=== PATIENT | female | born 1970 | race Caucasian/White ===

== ENCOUNTER → 2017-08-11 | Outpatient (CLI) | payer BC ==
--- NOTE | 2017-08-11 15:33 | US ---
EXAM DESCRIPTION: Breast,Bilateral: Ultrasound CLINICAL HISTORY: 47 yearsFemaleBREAST LUMP. Palpable at the 600 clock position of the posterior left breast. COMPARISON: Digital diagnostic 3-D tomosynthesis bilateral breast on the same visit. TECHNIQUE: Transcutaneous scanning of the bilateral breast utilizing two-dimensional and Doppler modes. Scanning performed by the sales technician home theater and Dr. Stewart. FINDINGS: Scanning of the 600 clock position of the left breast 5 cm from the nipple, where mass is palpable. Heterogeneous predominantly hypoechoic mass with angular, microlobulated, and spiculated margins, with predominantly posterior acoustic shadowing. Nonparallel orientation. Anterior aspect shows increased Doppler vascularity. Dimensions are 2.4 x 2.1 cm. No skin changes or distinct cyst or parenchymal edema. Scanning of the 1000 - 1100 clock position of the right breast 5 cm from the nipple. Heterogeneous fibroglandular and fatty echotexture with no distinct solid mass. No cyst, recommend edema, or large calcification. No skin changes. IMPRESSION: BI-RADS Category 5: Highly suspicious findings. Highly suggestive of malignancy. Please refer to bilateral 3-D tomosynthesis diagnostic mammographic examination and report on this visit. The FINDINGS and the FOLLOW-UP plan were reviewed in person with the patient after the examination. Written communication explaining the IMPRESSION and FOLLOW-UP will be mailed to the patient and referring care provider. CRITICAL COMMUNICATION: The critical value was discussed directly by phone with Dr. Adrien Ferrera at approximately 1425 hours, on August 11, 2017. Electronically signed by: Kenji Stewart MD 08/11/2017 3:31 PM CDT
--- NOTE | 2017-08-11 15:36 | MAM ---
EXAM DESCRIPTION: 3D Diagnostic, Bilateral: Digital Mammography CLINICAL HISTORY: 47 yearsFemaleUNSPECIFIED LUMP IN LEFT BREAST QUADRANT . Palpable lump posterior inferior left breast.. COMPARISON: None available. No prior reports available. TECHNIQUE: Bilateral CC LM MLO projection full-field images, 3-D tomosynthesis digital mammographic technique. Also bilateral synthesized CC MLO LM full-field images. CAD not utilized. FINDINGS: The breast parenchymal density pattern is: Heterogeneously dense breast tissue, which may obscure small masses. No skin thickening or nipple retraction secondary mammographic tissue in the left axilla. Small axillary lymph node. Skin marker indicating location of palpable mass at the 600 clock position of the posterior left breast in the posterior third. At this location, there is a mass density with irregular spiculated margins measuring approximately 2.1 x 1.9 x 1.8 cm. Approximately 6 cm from the nipple. Possibly small calcifications in the anterior mass. Focal asymmetry in the upper outer quadrant of the middle third of the right breast approximately 6 cm from the nipple at the 1030 - 1100 clock position. Approximately 7 cm from the nipple. No associated calcifications or mass density.. Ultrasound: Scanning of the 600 clock position of the left breast 5 cm from the nipple, where mass is palpable. Heterogeneous predominantly hypoechoic mass with angular, microlobulated, and spiculated margins, with predominantly posterior acoustic shadowing. Nonparallel orientation. Anterior aspect shows increased Doppler vascularity. Dimensions are 2.4 x 2.1 cm. No skin changes or distinct cyst or parenchymal edema. Scanning in the 1000 - 1100 clock position of the right breast 5 cm from the nipple. Heterogeneous fibroglandular and fatty echotexture with no distinct solid mass. No cyst, recommend edema, or large calcification. No skin changes. IMPRESSION: BIRADS CATEGORY: 5 HIGHLY SUSPICIOUS FINDINGS. HIGHLY SUGGESTIVE OF MALIGNANCY. Recommendation: Surgical consultation. The FINDINGS and the FOLLOW-UP plan were reviewed in person with the patient after the examination. Written communication explaining the IMPRESSION and FOLLOW-UP will be mailed to the patient and referring care provider. CRITICAL COMMUNICATION: The critical value was discussed directly by phone with Dr. Adrien Ferrera at approximately 1425 hours, on August 11, 2017. Electronically signed by: Kenji Stewart MD 08/11/2017 3:33 PM CDT
== END ==
LOC: MAMMO 11:31
PROVIDERS: ATTEND Family Medicine
DX: N63.20 Unspecified lump in the left breast, unspecified quadrant (principal)
CPT/HCPCS: 76641; 77066; G0279

== ENCOUNTER → 2017-08-16 | Outpatient (CLI) | payer BC ==
--- NOTE | 2017-08-16 09:22 | OP ---
DATE OF PROCEDURE: 08/16/17 PREOPERATIVE DIAGNOSIS: 1. Left breast mass, lower left breast. POSTOPERATIVE DIAGNOSIS: 1. Left breast mass, lower left breast. PROCEDURE: 1. Sonographically guided needle core biopsy, left breast mass. SURGEON: Lucio Zamora MD. CLINICAL CYTOGENETICIST: None. ANESTHESIA: Local infiltration of 1% lidocaine. INDICATION: The patient is a 47-year-old female with a family history of breast cancer who had her first mammogram which revealed a solid mass in the left breast just lateral to the 6 o'clock position. It was solid and irregularly shaped. She was brought to the Ultrasound Suite today for sonographically guided biopsy. FINDINGS: Five good cores were taken with ultrasound revealing the biopsy needle within the mass. PROCEDURE: The patient was placed in the supine position. The left arm was extended. The ultrasound was used to identify the mass. The the skin lateral to and superior to the mass was prepped with Betadine and draped with sterile towels. Local infiltration of anesthesia was obtained with lidocaine. The tissue between the skin and the mass was infiltrated with local anesthesia. A stab wound was made with a #15 blade and then the biopsy needle was introduced and five passes were made, all identified in the mass with ultrasound including the 90 degree turn for one. The specimens were placed in formalin. Hemostasis was obtained with pressure and then a single suture of 4-0 Prolene. Sterile pressure dressing was applied. The patient tolerated the procedure well. There was essentially no blood loss. #[id number] [facility]
--- NOTE | 2017-08-16 14:40 | US ---
EXAM DESCRIPTION: Biopsy/Needle Guidance CLINICAL HISTORY: 47 years Female BREAST NODULE COMPARISON: Diagnostic ultrasound of the lateral breast on August 11, 2017. TECHNIQUE: The procedure was performed by Dr. Zamora. Repeat ultrasound localized mass at the 500 clock position of the left breast 5 cm from the nipple.. Sterile preparation. Sterile ultrasound guidance during needle passes. FINDINGS: Again demonstrated is a heterogeneous predominantly hypoechoic mass with angular, microlobulated, and spiculated margins, with predominantly posterior acoustic shadowing. Nonparallel orientation. Follow-up images during the procedure show the echogenic needle within the mass. IMPRESSION: Successful, ultrasound-guided, fine-needle core biopsy of left breast mass. Adequate core samples were obtained. Pathology examination at remote facility, results pending. Recommendations: If the pathology results are negative, six-month breast imaging follow-up is recommended. Electronically signed by: Kenji Stewart MD 08/16/2017 2:39 PM CDT
== END ==
LOC: US 08:08
PROVIDERS: ATTEND Surgery
DX: N63.23 Unspecified lump in the left breast, lower outer quadrant (principal)

== ENCOUNTER → 2017-08-17 | Outpatient (CLI) | payer BC ==
--- NOTE | 2017-08-17 16:35 | RAD ---
EXAM DESCRIPTION: Chest,2 Views CLINICAL HISTORY: CA RIGHT BREAST COMPARISON: None. TECHNIQUE: PA and lateral images. FINDINGS: The lungs are normally expanded bilaterally, with no infiltrates. No pleural effusion, no pneumothorax. Heart size within normal range; pulmonary vascularity unremarkable. Mediastinum not widened. Aorta unremarkable. No acute bony thorax abnormalities. IMPRESSION: No radiographic evidence of acute cardiopulmonary disease. Electronically signed by: Kenji Stewart MD 08/17/2017 4:34 PM CDT
== END | disposition home or self-care (01) ==
LOC: LAB.O 15:12
PROVIDERS: ATTEND Surgery
DX: C50.812 Malignant neoplasm of overlapping sites of left female breast (principal)

== ENCOUNTER → 2017-08-25 | Outpatient (CLI) | payer BC ==
--- NOTE | 2017-08-25 13:01 | CT ---
EXAM DESCRIPTION: CT chest without contrast Chest w/Contrast CLINICAL HISTORY: 47 years, Female, LEFT BREAST CANCER COMPARISON: None TECHNIQUE: Thin-section axial CT images are obtained before and during rapid bolus administration of usual adult dose of nonionic iodinated IV contrast media. Reconstructed MPR images are created and reviewed as well. FINDINGS: CT chest without contrast Irregularly marginated mass in the inferior left breast measures 2.6 cm consistent with primary breast carcinoma. No axillary eric enlargement. There is high density in the left axilla which could be postoperative change or ectopic breast tissue. No mediastinal mass or adenopathy. Normal size of the heart. Lung window images are negative for worrisome nodules or masses. No consolidating pulmonary infiltrate, pneumothorax or pleural effusion. CT chest with contrast After IV contrast administration, repeat helical scanning through the chest was performed. Mild biapical pleural-parenchymal scarring is incidentally noted. A tiny granuloma is seen in the anterior segment left upper lobe measuring 2 mm (image 34, series 9). Another similar sized tiny granulomas is seen in the lung adjacent to the lateral AP window (coronal image 115, series 607 and axial image 20, series 6) which measures 2.5 mm. In the mediastinum, there is normal enhancement of vessels. Esophagus is prominent in caliber. No esophageal mass. Small sliding-type hiatal hernia in the lower thorax is incidentally noted. Bone window images are negative for lytic or sclerotic lesions to suggest metastases. Coronal and sagittal reformatted images confirm the findings. IMPRESSION: Tiny granulomas in the left upper lobe. No other findings to suggest thoracic metastatic disease. Left breast mass consistent with known primary breast carcinoma. This exam was performed according to our departmental dose-optimization program, which includes automated exposure control, adjustment of the mA and/or kV according to patient size and/or use of iterative reconstruction technique. Electronically signed by: Stef Garcia MD 08/25/2017 12:59 PM CDT
--- NOTE | 2017-08-25 13:12 | CT ---
EXAM DESCRIPTION: CT ABDOMEN AND PELVIS WITHOUT AND WITH CONTRAST CLINICAL HISTORY: LEFT BREAST CANCER COMPARISON: None Available. TECHNIQUE: CT of the abdomen and pelvis are performed prior to and during IV bolus administration of routine adult dose of nonionic iodinated contrast. Oral contrast media is administered as well. FINDINGS: Precontrast CT abdomen/pelvis The lung bases are clear of infiltrate. Liver is normal in size and parenchymal appearance. Spleen, pancreas, and kidneys are unremarkable. No kidney stones. Moderate amount of fecal material in the colon. No inflammation around the pancreas. There is no lymphadenopathy, inflammation, or free fluid observed. In the pelvis, uterus is prominent and anteroflexed. Fatty lesion in the left ovary with small calcification is consistent with ovarian dermoid approximately 1.5 cm. Distal ureters and bladder are negative for stones. Metallic densities in the region of the fallopian tubes suggests contraceptive devices. Appendix appears normal. Moderate to large amount of fecal material in the colon and rectum. Postcontrast CT abdomen/pelvis The lung bases are clear of infiltrate. Liver is normal in size and parenchymal appearance after contrast. Spleen, pancreas, and kidneys are unremarkable with no focal lesion seen on the postcontrast images. Normal enhancement of upper abdominal vessels. Moderate amount of fecal material in the colon. No calcified gallstones. No aortic aneurysm. No inflammation around the pancreas. There is no lymphadenopathy, inflammation, or free fluid observed. In the pelvis, uterus is prominent and anteroflexed and there is a small pedunculated lesion consistent with a subserous fibroid 1.8 cm. Fatty and cystic lesions in the left ovary may be physiologic cyst plus ovarian dermoid. Cyst measures 2.4 cm and fatty component of the ovarian dermoid with small calcification measures 1.6 cm. Right ovary is small. Distal ureters and bladder are negative for stones. Metallic densities in the region of the fallopian tubes suggests contraceptive devices. Appendix appears normal. Moderate to large amount of fecal material in the colon and rectum. No inguinal or lower pelvic adenopathy. No contrast in the distal ureters or bladder. Delayed images were obtained showing positive contrast accumulation in the urinary collecting systems. There is positive contrast in the distal ureters as well as the urinary bladder on the delayed images. Coronal and sagittal reformatted images confirm the findings. Sagittal images suggest show degenerative changes at L5-S1. No ventral hernia. IMPRESSION: Negative for evidence of abdominal or pelvic metastatic disease. Small uterine fibroid. Complex left ovary. See above. This exam was performed according to our departmental dose-optimization program, which includes automated exposure control, adjustment of the mA and/or kV according to patient size and/or use of iterative reconstruction technique. Electronically signed by: Stef Garcia MD 08/25/2017 1:11 PM CDT
== END ==
LOC: LAB.O 08:32
PROVIDERS: ATTEND Surgery
DX: C50.812 Malignant neoplasm of overlapping sites of left female breast (principal); R93.7 Abnormal findings on diagnostic imaging of other parts of musculoskeletal system

== ENCOUNTER 2017-09-06 05:33 | Day surgery (SDC) | payer BC ==
[2017-09-06] MEDS ORDERED: SODIUM CHLORIDE 0.9% 50 ML VIAL ONE (07:00)
[2017-09-06] MEDS ORDERED: HEPARIN SODIUM 100 U/ML 5 ML SYG IV ONE (07:00)
[2017-09-06] MEDS ORDERED: SODIUM BICARBONATE VIAL 50 MEQ/50 ML VIAL ONE (07:00)
[2017-09-06] MEDS ORDERED: LIDOCAINE 1% 50 ML VIAL INJ ONE (07:00)
[2017-09-06] MEDS ORDERED: LACTATED RINGERS 1,000 ML ONE (07:07)
[2017-09-06] MEDS ORDERED: ceFAZolin SODIUM 1 GM VIAL ONE (07:07)
[2017-09-06] MEDS ORDERED: SODIUM CHL 0.9% 100ML MINI-BAG 100 ML IVPB ONE (07:07)
[2017-09-06] MEDS ORDERED: DEXAMETHASONE INJ 10 MG/ML VIAL IV ONE (10:00)
[2017-09-06] MEDS ORDERED: PROPOFOL 200 MG/20 ML VIAL IV ONE (10:00)
[2017-09-06] MEDS ORDERED: HYDROcodone 5MG/APAP 325MG 1 EA TAB ONE (10:00)
[2017-09-06] MEDS ORDERED: METOCLOPRAMIDE HCL 10 MG/10 ML PO ONE (10:00)
[2017-09-06] MEDS ORDERED: ONDANSETRON INJ 4 MG/2 ML VIAL IV ONE (10:00)
--- NOTE | 2017-09-06 10:05 | RAD ---
EXAM DESCRIPTION: Chest,1 View CLINICAL HISTORY: POST OP PORT PLACE COMPARISON: Chest x-ray 08/17/2017. TECHNIQUE: AP portable taken at 947 hours, upright position. FINDINGS: VAD has been introduced via right subclavian. Tip in the proximal SVC. No pneumothorax or mediastinal widening. Cardiopulmonary vascular structures are unremarkable. No acute infiltrate or pleural effusion. IMPRESSION: Customary positioning of VAD with no radiologic complications. Electronically signed by: Kenji Stewart MD 09/06/2017 10:04 AM CDT
--- NOTE | 2017-09-06 10:11 | OP ---
DATE OF PROCEDURE: 09/06/17 PREOPERATIVE DIAGNOSIS: 1. Carcinoma of the left breast for neoadjuvant chemotherapy. POSTOPERATIVE DIAGNOSIS: 1. Carcinoma of the left breast for neoadjuvant chemotherapy. PROCEDURE: 1. Insertion of right subclavian venous access port. SURGEON: Lucio Zamora MD. WIRE INSULATOR: None. ANESTHESIA: Local infiltration of 1% lidocaine and IV sedation by Anesthesia. INDICATION: The patient is a 47-year-old female who presented with a painful mass just above the intramammary fold in her left breast. It continues to be painful. She has undergone a needle core biopsy which revealed an invasive carcinoma with some worrisome tumor markers. She was brought to the Surgical Suite today for insertion of right subclavian venous access port after she was seen by Oncology and a decision and plan has been made for neoadjuvant chemotherapy. FINDINGS: The guidewire and then the catheter were identified in the superior vena cava using fluoroscopy. Post procedure chest x-ray is pending. PROCEDURE: After adequate sedation as performed, the patient was prepped and draped in the usual sterile manner. A surgical time-out was taken identifying the previously marked right infraclavicular area. At this point, local infiltration with anesthesia was obtained in this area. A 22-gauge needle was introduced under the clavicle and venous blood was aspirated. A stab wound was made with a #15 blade and then the 18-gauge thin wall needle was introduced in the same direction. Venous blood was easily aspirated. The guidewire was introduced without difficulty and the needle was removed. At this point, a towel was placed over the field and fluoroscopy was used to identify the guidewire in the superior vena cava. At this point, local infiltration of anesthesia was obtained for a transverse incision inferior and medial to the insertion site. A sharp knife was used to divide the skin and then dissection was carried down through the skin and subcutaneous tissue to form the port pocket in the usual manner. When this was done, the port was introduced. It was tunneled from the port pocket to the insertion site and the tunneler was removed. It was then placed under a sterile towel. The port was sutured in place with two 3-0 Prolene simple sutures. The subcutaneous tissues were then closed over the port with interrupted 3-0 Vicryl sutures. At this point, the catheter was cut to appropriate length and introduced through the introducer. The introducer was then removed and the catheter was left in position. The port was accessed with a Calderon needle and blood was easily aspirated. It was then flushed with heparinized saline followed by heplock and then de-accessed. The skin edges were approximated with 4-0 Vicryl subcuticular sutures, benzoin and Steri-Strips after a followup fluoroscopy identified the catheter in acceptable position. When this was done, sterile dressings were applied. The patient was awakened and taken to the Ambulatory Unit in stable condition. Estimated blood loss was less than 50 mL. All sponge, needle and instrument counts were correct. #[id number] [facility]
[2017-09-06 11:16] VITALS: BP 112/76; TEMP 98.9; O2SAT 100
== END 2017-09-06 10:55 | disposition home or self-care (01) ==
LOC: AMB 05:33
PROVIDERS: ATTEND Surgery
DX: C50.912 Malignant neoplasm of unspecified site of left female breast (principal); K21.9 Gastro-esophageal reflux disease without esophagitis; G89.29 Other chronic pain; M54.9 Dorsalgia, unspecified; G47.00 Insomnia, unspecified; Z88.1 Allergy status to other antibiotic agents; Z87.891 Personal history of nicotine dependence; Z79.1 Long term (current) use of non-steroidal anti-inflammatories (NSAID); Z79.899 Other long term (current) drug therapy
CPT/HCPCS: 00532; 36415; 36561; 71045; 76000; 81001; 85025; A4216; C1788; J0690; J1100; J1642; J2405; J3490; J7050; J7120

== ENCOUNTER 2017-11-25 05:54 | Inpatient (IN) | payer BC ==
--- NOTE | 2017-11-23 12:06 | RAD ---
EXAM DESCRIPTION: Chest,2 Views CLINICAL HISTORY: PRE SURGERY COMPARISON: Previous study September 06, 2017 TECHNIQUE: PA/lateral FINDINGS: Port-A-Cath on the right is present with tip in the region of the mid to lower superior vena cava. Prominent ascending aorta is present. Heart size is normal with normal pulmonary vascularity. No pleural effusion or pneumothorax. Lungs are clear with no consolidating infiltrate. Lateral view shows intact sternum and T-spine. No change since previous study. IMPRESSION: No acute process is identified in the chest. Electronically signed by: Stef Garcia MD 11/23/2017 12:05 PM CDT
[2017-11-25] MEDS ORDERED: PHENYLEPHRINE INJ 1ML 10 MG/ML VIAL ONE (07:00)
[2017-11-25] MEDS ORDERED: DEXAMETHASONE INJ 10 MG/ML VIAL ONE (07:00)
[2017-11-25] MEDS ORDERED: LIDOCAINE 1% 10 ML VIAL INJ ONE (07:00)
[2017-11-25] MEDS ORDERED: SODIUM CHLORIDE 0.9% 50 ML VIAL ONE (07:00)
[2017-11-25] MEDS ORDERED: ceFAZolin SODIUM 1 GM VIAL ONE ×2 (07:00→07:02)
[2017-11-25] MEDS ORDERED: PROPOFOL 200 MG/20 ML VIAL IV ONE (07:00)
[2017-11-25] MEDS ORDERED: METOCLOPRAMIDE HCL INJ 10 MG/2 ML VIAL ONE (07:00)
[2017-11-25] MEDS ORDERED: raNITIdine HCL INJ 25 MG/ML VIAL ONE (07:00)
[2017-11-25] MEDS ORDERED: SCOPOLAMINE PATCH 1.5MG 1 EA TD ONE (07:02)
[2017-11-25] MEDS ORDERED: LACTATED RINGERS 1,000 ML ONE (07:02)
[2017-11-25] MEDS ORDERED: SODIUM CHL 0.9% 100ML MINI-BAG 100 ML IVPB ONE (07:02)
[2017-11-25] MEDS ORDERED: MIDAZOLAM INJ 5 MG/5 ML VIAL ONE (07:32)
[2017-11-25] MEDS ORDERED: fentaNYL CITRATE INJ 50 MCG/ML AMP ONE (07:32)
[2017-11-25] MEDS ORDERED: ACETAMINOPHEN IV 1000MG 100 ML ONE (08:40)
[2017-11-25] MEDS ORDERED: HYDROmorphone HCL INJ 2 MG/ML VIAL ONE (09:05)
[2017-11-25] MEDS ORDERED: ELECTROLYTE-A 1,000 ML IVS ONE (11:12)
[2017-11-25] MEDS ORDERED: ONDANSETRON INJ 4 MG/2 ML VIAL IV PRN (12:24)
--- NOTE | 2017-11-25 13:23 | HP ---
CHIEF COMPLAINT: Biopsy-proven carcinoma of the left breast. HISTORY OF PRESENT ILLNESS: The patient is a 47-year-old female who presented with a tender left breast mass, abnormal mammogram. She underwent needle core biopsy which revealed an invasive carcinoma. Due to the pain and the fact that this was a low-lying tumor close to the skin, we decided to proceed with neoadjuvant chemotherapy and I believe she got 3 courses with no clinical response, so she was brought to the Surgical Suite today for left modified radical mastectomy and right simple mastectomy after the risks, benefits and alternatives to the procedure were discussed and accepted. PAST MEDICAL HISTORY: 1. Migraines. 2. Chronic back pain. PAST SURGICAL HISTORY: 1. L4-L5 disc surgery. 2. Tubal ligation. 3. times 2. 4. Arthroscopy of the right knee. CURRENT MEDICATIONS: 1. Estazolam. 2. Tylenol #3. ALLERGIES: AMOXIL, BUT ONLY CAUSES GI UPSET. FAMILY HISTORY: Positive for carcinoma of the breast in her mother. SOCIAL HISTORY: The patient drinks rarely, does not smoke and is and lives with her . REVIEW OF SYSTEMS: Noncontributory except as in the history of present illness and past medical history. Specifically, there has been no bleeding or drainage from her nipples. She has had no change in bowel habits, no weight loss and no shortness of breath or chest pain. PHYSICAL EXAMINATION: GENERAL: The patient is awake, alert, cooperative, in mild distress. VITAL SIGNS: The patient is currently afebrile, normotensive. HEENT: Sclerae nonicteric. Mucous membranes moist. NECK: Without adenopathy. BACK: Without CVA tenderness. CHEST: There is no supraclavicular adenopathy or axillary adenopathy. The left breast has a tender mass low in the 6 to 7 o'clock position. There is small possible skin dimpling when manipulating the breast and is tender. No fluctuance or erythema. There is no nipple discharge. The right breast is without mass, skin change or nipple discharge. LUNGS: Equal breath sounds bilaterally. HEART: Regular rate and rhythm. ABDOMEN: Soft and benign without organomegaly or mass. PELVIC/RECTAL: Deferred. EXTREMITIES: Without cyanosis, clubbing or edema. LABORATORY: Preoperative hemoglobin 10.1, white count 3.5, neutrophils 65%, platelet count 376,000. Electrolytes revealed a potassium of 3.5, creatinine 0.68, sodium 138, blood sugar 129. This was random. Liver function are within normal limits. Urinalysis essentially clear. Chest x-ray reveals no acute process. ASSESSMENT: 1. Biopsy-proven carcinoma of the left breast. PLAN: She is admitted for left modified radical mastectomy and right simple mastectomy. She will be given IV Ancef preoperatively. #[id number] [facility]
[2017-11-25] MEDS ORDERED: KETOROLAC TROMETHAMINE INJ 30 MG/ML VIAL ONE (13:29)
--- NOTE | 2017-11-25 14:02 | OP ---
DATE OF PROCEDURE: 11/25/17 PREOPERATIVE DIAGNOSIS: 1. Biopsy-proven carcinoma of the left breast. POSTOPERATIVE DIAGNOSIS: 1. Biopsy-proven carcinoma of the left breast. PROCEDURE: 1. Left modified radical mastectomy. 2. Right simple mastectomy. SURGEON: Lucio Zamora MD. SIEVE MAKER: None. ANESTHESIA: General laryngeal mask anesthesia. INDICATION: The patient is a 47-year-old female with biopsy-proven carcinoma who presented with a tender mass. Neoadjuvant chemotherapy did not give a clinical response either to her discomfort or the size of the tumor. She was brought to the Surgical Suite today for modified radical mastectomy and after discussion and at the patient's request, we will proceed with a right simple mastectomy also today. FINDINGS: There was palpable lymphadenopathy within the axillary specimen. Upon taking down the inferior flap, a small seroma or resolving hematoma was entered with a small amount of drainage. This did not appear to be directly associated with the tumor. There was no obvious mass involved with the right breast. PROCEDURE: After adequate general laryngeal mask anesthesia was obtained, the patient was prepped and draped in the usual sterile manner. Surgical time-out was taken. A towel was placed over the right breast. At this point, an elliptical incision was fashioned around the nipple-areolar complex on the left side with the inferior flap being taken lower than normal due to the tumor being quite low. When this was done, the superior flap was then taken, first with a sharp knife, then with electrocautery. The Noemi thyroid grasping forceps were then placed on the skin edge and the superior flap was taken medially to the sternal border, superiorly to the clavipectoral fascia and laterally to the axilla. When this was done, a moist sponge was placed under it and the inferior flap was taken in same manner down to the rectus abdominis fascia. While the inferior flap was taken down, the small seroma was entered with a small amount of old blood which was aspirated and then there was no further leakage. This did not seem to directly be involved with the tumor. When this was done, the breast was taken down from superior to inferior using sharp dissection with a 15 blade and electrocautery. It was then taken from medial to lateral into the axilla. When this was done, the axillary node dissection was done in the usual manner with the superior margin being the axillary vein and posterior margins being the long thoracic nerve of Knowles and thoracodorsal bundle. Dissection was then carried inferiorly into the axilla and the specimen was removed. It was sent for pathological evaluation and passed from the field. When this was done, the wound was then irrigated with saline. Hemostasis was noted to be adequate. At this point, two drains were placed through the inferior flap, one placed on the chest wall and one in the axilla. They were sutured in place with 3-0 Nylon sutures. When this was done , the skin was closed with a running 3-0 Vicryl suture, two sutures. It was then irrigated through the wound and aspirated through the drains. The skin edges were approximated with a skin stapler. The drains were cut to appropriate length and attached to grenades for closed suction. When this was done, the staff changed gowns and gloves. The towel was taken off the right breast. The field was re-draped with new towels. An elliptical incision was fashioned around the right nipple-areolar complex in the usual manner. The superior flap was taken superiorly to the clavipectoral fascia, laterally to the edge of the axilla and medially to the sternum. The inferior flap was taken down to the rectus abdominis fascia in the normal manner. The towel was placed under this flap. The breast was then taken from superiorly and medially, laterally to the edge of the axilla and transected. Hemostasis was obtained with electrocautery. The specimen was passed from the field. When hemostasis was noted to be adequate and irrigation was noted to be adequate, two drains were placed, one medial and one in the lateral aspect of the chest wall. They were brought out through separate stab wounds and the inferior flap sutured in place with 3-0 Nylon ligatures. When this was done, the wound was irrigated through the wound and aspirated through the drains. The drains were cut appropriately and placed to closed suction drainage. Sterile dressings were applied. The patient was then awakened and taken to the Recovery Room in stable condition. Estimated blood loss was approximately 250 mL. All sponge, needle and instrument counts were correct. #[id number] [facility]
[2017-11-25] MEDS: HYDROmorphone HCL INJ 2 MG/ML VIAL IV PRN ×3 (14:59→20:28)
[2017-11-25] MEDS ORDERED: ceFAZolin SODIUM 2 GRAMS PREMI 50 ML IVPB ONE (16:05)
[2017-11-25] MEDS: ceFAZolin SODIUM 2 GRAMS PREMI 2 GM in PREMIX BAG 1 BAG IVPB SCH (16:15)
[2017-11-25] MEDS: LACTATED RINGERS 1,000 ML IVS PRN (17:05)
[2017-11-25] MEDS ORDERED: diphenhydrAMINE HCL 25 MG CAP PO PRN ×2 (21:35→22:09)
[2017-11-25] MEDS ORDERED: diphenhydrAMINE HCL 25 MG CAP ONE ×2 (21:40→21:53)
[2017-11-26] MEDS: ceFAZolin SODIUM 2 GRAMS PREMI 2 GM in PREMIX BAG 1 BAG IVPB SCH ×2 (00:15→08:26)
[2017-11-26] MEDS ORDERED: ceFAZolin SODIUM 2 GRAMS PREMI 50 ML IVPB ONE ×3 (01:53→17:52)
[2017-11-26] MEDS ORDERED: PANTOPRAZOLE SODIUM TAB 40 MG PO ONE (01:53)
[2017-11-26] MEDS: HYDROcodone 5MG/APAP 325MG 1 EA TAB PO PRN ×5 (02:01→20:25)
[2017-11-26] MEDS: LACTATED RINGERS 1,000 ML IVS PRN (04:25)
[2017-11-26] MEDS: PANTOPRAZOLE SODIUM TAB 40 MG PO SCH (06:06)
[2017-11-26] MEDS: ENOXAPARIN SODIUM 40 MG/0.4 ML SYG SUBCU SCH (08:32)
[2017-11-26] MEDS ORDERED: LACTATED RINGERS 1,000 ML ONE (17:51)
[2017-11-26] MEDS ORDERED: NICOTINE PATCH 14 MG TD ONE (17:52)
[2017-11-27] MEDS ORDERED: IBUPROFEN 400 MG TAB ONE (02:44)
[2017-11-27] MEDS: HYDROcodone 10MG/APAP 325MG 1 EA TAB PO PRN ×5 (02:47→20:11)
[2017-11-27] MEDS: IBUPROFEN 200 MG TAB PO SCH ×3 (02:52→19:01)
[2017-11-27] MEDS: PANTOPRAZOLE SODIUM TAB 40 MG PO SCH (06:26)
[2017-11-27] MEDS ORDERED: MAGNESIUM HYDROXIDE 30 ML UD PO ONE (07:46)
[2017-11-27] MEDS ORDERED: MAGNESIUM HYDROXIDE 30 ML UD ONE (10:28)
[2017-11-27] MEDS: ENOXAPARIN SODIUM 40 MG/0.4 ML SYG SUBCU SCH (10:29)
[2017-11-28] MEDS: HYDROcodone 10MG/APAP 325MG 1 EA TAB PO PRN ×3 (00:30→10:25)
[2017-11-28] MEDS: IBUPROFEN 200 MG TAB PO SCH ×2 (02:40→11:24)
[2017-11-28] MEDS: PANTOPRAZOLE SODIUM TAB 40 MG PO SCH (06:06)
[2017-11-28] MEDS ORDERED: ONDANSETRON ODT 8 MG TAB ONE (09:28)
[2017-11-28] MEDS: ENOXAPARIN SODIUM 40 MG/0.4 ML SYG SUBCU SCH (11:24)
[2017-11-28] MEDS ORDERED: ONDANSETRON ODT (ER DISP) 8 MG TAB PO ONE (14:48)
[2017-11-28] MEDS ORDERED: ONDANSETRON ODT 8 MG TAB PO ONE (15:00)
[2017-11-28 15:14] VITALS: BP 132/90; TEMP 97.8; O2SAT 95
--- NOTE | 2017-11-28 18:47 | DS ---
FINAL DIAGNOSIS: 1. Carcinoma of the left breast pending final pathology report. SURGICAL PROCEDURE: 1. On 11/25/17, the patient underwent a left modified radical mastectomy and a right simple mastectomy. HISTORY OF PRESENT ILLNESS: The patient is a 47-year-old female who presented with a tender left breast mass, abnormal mammogram. She underwent needle core biopsy which revealed an invasive carcinoma. Due to the pain and the fact that this was a low-lying tumor close to the skin, we decided to proceed with neoadjuvant chemotherapy and I believe she got 3 courses with no clinical response, so she was brought to the Surgical Suite today for left modified radical mastectomy and right simple mastectomy after the risks, benefits and alternatives to the procedure were discussed and accepted. LABORATORY: The first postoperative day the patient's white blood cell count was 5.5. She had a hemoglobin of 8.2, 70% neutrophils, 273,000 platelets. Pathology is pending. HOSPITAL COURSE: The patient was admitted to the Surgical Suite where she underwent the two noted procedures. She awoke easily without significant nausea. By the first postoperative morning she was tolerating a clear liquid diet and complaining of pain, but stating it was different pain than the breast pain she had preoperatively. As noted her lab was noted. Her IV was discontinued. She was changed to oral pain medication and Protonix. By the second postoperative day she was tolerating a regular diet and had had a bowel movement. Her urine output was good and her J-P drainage was moderate and serosanguinous, however we did have some problem with pain control and Ibuprofen was added 600 mg every 8 hours and switched to 10 mg Hydrocodone. Her dressing was changed. There was some mottling of both the superior and inferior flaps on the left. The J-P drainage continued to be serosanguinous. By the third postoperative morning she did vomit but was generally feeling better. Her pain was under control. Again her dressing was changed and the J- P drainage of the chest wall drain on the right was minimal, so that was removed. She was rewrapped and at that time she was discharged home. Condition on discharge is good and stable. Prognosis is pending the pathology report. PLAN: She is discharged on her regular diet and her home medications. She is also instructed to buy a proton pump inhibitor to take orally [id number] to take twice a day or a double dose in the evening. She is discharged with new prescription for Hydrocodone 10 for pain and for the 600 mg Ibuprofen every 8 hours. She is instructed that she cannot get her dressing wet and she is not to exercise with her left shoulder. She is to use her left elbow, wrist and fingers, and her right arm as needed. I will followup with her in the next 2 to 3 days pending her drainage, obtaining the pathology report and the ability to find a home health agency that will accept her insurance which is [employer] [facility]. #[id number] [facility]
== END 2017-11-28 12:30 | disposition home health service (06) | DRG 583 ==
LOC: AMB 05:54 → MS 14:28
PROVIDERS: ADMIT Surgery; ATTEND Surgery
PROC: 0HTV0ZZ Resection of Bilateral Breast, Open Approach (ICD-10-PCS; principal; 2017-11-25 07:00)
DX: C50.912 Malignant neoplasm of unspecified site of left female breast (principal); G89.29 Other chronic pain; M54.9 Dorsalgia, unspecified; Z88.0 Allergy status to penicillin; Z92.21 Personal history of antineoplastic chemotherapy; Z79.899 Other long term (current) drug therapy

== ENCOUNTER 2018-01-18 16:17 | Inpatient (IN) | payer BC ==
--- NOTE | 2018-01-18 17:03 | RAD ---
EXAM DESCRIPTION: Chest,2 Views CLINICAL HISTORY: 47 years Female rule out infection, leukopenia COMPARISON: 11/23/2017 FINDINGS: The cardiomediastinal silhouette appears unremarkable. No consolidating infiltrates or pleural effusions. No pneumothorax. Kkmziy-n-Tbrl catheter in unchanged position. IMPRESSION: No acute abnormality is identified. Electronically signed by: Estefany Abreu MD 01/18/2018 5:02 PM CDT
--- NOTE | 2018-01-18 17:26 | HP ---
SUPERVISING PHYSICIAN: Jose Dowling MD CHIEF COMPLAINT: Fever and neutropenia status post chemotherapy for breast cancer. HISTORY OF PRESENT ILLNESS: Ms. Carlson is a 47-year-old female patient with a history of stage 2 breast cancer. On 11/25/17, the patient had a left modified radical mastectomy as well as a right simple mastectomy. She had been diagnosed with low-lying tumors close to the skin and had proceeded with non-injected chemotherapy, 3 courses, but had no clinical response. Her oncologist is Dr. Armenta from [place]. She was seen in followup today in his office and lab work was completed showing she had a white count of only 1, 000 and absolute neutrophil count less than 500 as well as she was running a fever of 101.5. Dr. Armenta requested the patient be admitted to the hospital in [place], however, the patient came to [place] as she was wishing to be admitted at [facility]. I spoke with Dr. Armenta and he noted that she had just finished a round of chemotherapy ten days previously. In the office today, she was given 1 gram of Rocephin. Given that she has severe neutropenia with a fever, Dr. Armenta requested the patient be admitted for initiation of prophylactic antibiotics and for close monitoring for at least three days or until her white count improves and her absolute neutrophil count gets at least above 1500. The patient is now going to be admitted to the Medical/Surgical Floor for further treatment and initiation of antibiotics. She is in stable condition at time of admission. PAST MEDICAL HISTORY: 1. Left breast cancer, stage 2, currently status post chemotherapy ten days previously. 2. Migraines. 3. Chronic back pain. PAST SURGICAL HISTORY: 1. Left modified radical mastectomy and right simple mastectomy on 11/25/[address] Zamora. 2. L4-L5 disc surgery. 3. Tubal ligation. 4. times 2. 5. Right knee arthroscopy. CURRENT MEDICATIONS: 1. Ibuprofen 200 mg q.8h. p.r.n. 2. Benadryl 50 mg q.6h. as needed. 3. Tylenol 500 mg q.4h. as needed. 4. Compazine 10 mg q.8h. as needed. 5. Neulasta subcutaneous 6 mg daily. 6. Chemotherapy with carboplatin (D1) with paclitaxel. ALLERGIES: AMOXICILLIN WITH ADVERSE REACTION OF GI UPSET. CARE PROVIDERS: Primary care provider: Dr. Ferrera Oncologist: Dr. Armenta Surgeon: Dr. Zamora FAMILY HISTORY: Positive for ovarian cancer in her mother. SOCIAL HISTORY: The patient currently lives in [place]. She is . 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 She denies ever smoking and drinks alcohol on rare occasions. REVIEW OF SYSTEMS: CONSTITUTIONAL: Positive for fevers, chills. No reported unintentional weight loss. HEENT: Denies headaches, visual changes, sinus congestion, earache or sore throat. RESPIRATORY: Denies coughing, wheezing, shortness of breath. CARDIOVASCULAR: Denies chest pain, palpitations, exertional dyspnea, extremity edema or syncopal episodes. GASTROINTESTINAL: Denies nausea or vomiting, diarrhea, constipation or other bowel habit changes. No abdominal pains. GENITOURINARY: Denies dysuria, hematuria, polyuria or other urinary symptoms. NEUROLOGIC: Denies ataxia, seizures, any motor or sensory deficits or syncopal or presyncopal episodes. PHYSICAL EXAMINATION: VITAL SIGNS: On admission, temperature 99. Pulse 142. Blood pressure 138/91. Respirations 20. Saturation 99% on room. Vital signs in the clinic prior to admission reported temperature 101.5. Admission weight 67.9 kg. GENERAL: On admission to the Medical/Surgical Floor, the patient appears comfortable, in no acute distress, she is alert, in good spirits and cooperative. HEENT: Tympanic membranes clear bilaterally. Oropharynx is pink, moist without any lesions. No notable lymphadenopathy. NECK: Supple, nontender with full range of motion. No jugular venous distention noted. RESPIRATORY: Lungs clear to auscultation bilaterally without any rhonchi, wheezes, or rales. CHEST: Right chest wall Port-A-Cath is in place with no signs of infection. CARDIOVASCULAR: Regular rate and rhythm without any appreciable murmurs, gallops, or rubs. BACK: No vertebral tenderness, no paravertebral tenderness, no CVA tenderness. ABDOMEN: Soft, nontender. Positive bowel sounds. EXTREMITIES: There is no cyanosis, clubbing or edema. NEUROLOGIC: The patient is alert and oriented times three. Cranial nerves II- XII are grossly intact. Facial features are symmetrical. Extraocular movements are within normal limits. There is no nystagmus noted. INTEGUMENTARY: No rashes, lesions, sores. Skin is pink, warm and dry. LABORATORY: On admission, CBC showed 900 white count with absolute neutrophil count 144. Differential showed 8 neutrophils with 8 bands. Hemoglobin 10.3, hematocrit 31.4, RBC indices showing normocytic/hypochromic presentation. Chemistries showed initial potassium 3.0, sodium 136, BUN 9, creatinine 0.68, glucose 138, calcium 9.2. Liver functions within normal limits. Albumin normal at 4.1. MICROBIOLOGY: Urine culture pending. Blood cultures pending. Sputum culture pending. RADIOLOGY: Chest x-ray on admission, two view, per radiologic interpretation showed no consolidations, infiltrates or pulmonary effusions. [id number] in unchanged position. ASSESSMENT: 1. Neutropenic fever in a status post chemotherapy therapy for stage 2 breast cancer. 2. Leukopenia secondary to recent chemotherapy having been on Neulasta with absolute neutrophil count less than 500. 3. Normocytic/hypochromic anemia secondary to chronic illness and recent chemotherapy with no evidence of acute loss. 4. Electrolyte imbalance to include hypokalemia. 5. History of migraines. 6. History of chronic back pain. PLAN: After speaking with Dr. Armenta, the patient is going to be admitted to the Medical/Surgical Floor and placed in reverse isolation for neutropenia. She will be started on ceftazidime 2 grams q.8h. She was given an initial dose prior to admission in the office of ceftriaxone, but after talking to Dr. Armenta , he requested if we had the formulary to utilize the aforementioned antibiotic. She will be on DVT prophylaxis per protocol. We will resume her home medications once those have been updated and verified. She will be in reverse isolation and on a neutropenic diet. I anticipate discharge in three days as soon as white count shows improvement to at least 1500. Dr. Armenta requested that we repeat labs in the morning daily and any other laboratories that are required and on admission do chest x-ray and get cultures of urine, blood and sputum if possible. She has been on Neulasta, but at this point he says he does not believe she is in need of this, but certainly we need to continue sustained contact with Dr. Armenta daily regarding her clinical findings. He did note that should she show any decline, he requested she be transferred to [place] and he would be glad to facilitate that transfer if needed. Dr. Armenta anticipates the patient should show clinical improvement within the next two to three days and be able to discharge home. In regard to the hypokalemia, we will put her on some IV fluids with D5 half normal saline with 40 of potassium at 80 an hour and recheck in the morning. I will also check a magnesium as well and replace as needed parenterally if required. Until then, we will continue to monitor the patient closely and treat appropriately. #[id number] [facility]
[2018-01-18] MEDS ORDERED: ONDANSETRON INJ 4 MG/2 ML VIAL IV PRN (17:33)
[2018-01-18] MEDS ORDERED: SODIUM CHLORIDE 0.9% (FLUSH) 10 ML SYG IV PRN (17:33)
[2018-01-18] MEDS ORDERED: KCL 40 MEQ/D5 1/2NS 1,000 ML IVS PRN (17:37)
[2018-01-18] MEDS ORDERED: IV SET AND CAP CHANGE INJ INJ SCH (18:00)
[2018-01-18] MEDS ORDERED: PROCHLORPERAZINE MALEATE 10 MG TAB PO PRN (19:54)
[2018-01-18] MEDS ORDERED: NON-FORMULARY MEDICATION 1 EA MIS (Diphenhydramine Hcl [Benadryl] 50 MG) PO PRN (19:54)
[2018-01-18] MEDS ORDERED: IBUPROFEN 200 MG TAB PO SCH (20:00)
[2018-01-18] MEDS ORDERED: IBUPROFEN 200 MG TAB PO PRN (20:03)
[2018-01-18] MEDS: ACETAMINOPHEN 325 MG TAB PO PRN (20:12)
[2018-01-18] MEDS ORDERED: SODIUM CHLORIDE 0.9% 100ML 100 ML IVPB ONE (21:19)
[2018-01-18] MEDS ORDERED: cefTAZidime 1 GM VIAL ONE (21:19)
[2018-01-18] MEDS: cefTAZidime 2 GM in SODIUM CHLORIDE 0.9% 100ML 100 ML IVPB SCH (21:36)
[2018-01-18] MEDS: ALPRAZolam 0.5 MG TAB PO PRN (21:40)
[2018-01-18] MEDS ORDERED: SODIUM CHLORIDE 0.9% 500ML 500 ML IVS ONE (22:24)
[2018-01-18] MEDS: ENOXAPARIN SODIUM 40 MG/0.4 ML SYG SUBCU SCH (22:51)
[2018-01-19] MEDS ORDERED: IBUPROFEN 200 MG TAB PO PRN (01:09)
[2018-01-19] MEDS: ACETAMINOPHEN 325 MG TAB PO PRN (04:22)
[2018-01-19] MEDS: ALPRAZolam 0.5 MG TAB PO PRN ×3 (04:22→20:26)
[2018-01-19] MEDS ORDERED: cefTAZidime 1 GM VIAL ONE ×3 (05:02→19:34)
[2018-01-19] MEDS ORDERED: SODIUM CHLORIDE 0.9% 100ML 100 ML IVPB ONE ×3 (05:02→19:34)
[2018-01-19] MEDS: cefTAZidime 2 GM in SODIUM CHLORIDE 0.9% 100ML 100 ML IVPB SCH ×3 (05:05→21:20)
--- NOTE | 2018-01-19 07:15 | RAD ---
EXAM DESCRIPTION: Chest,2 Views CLINICAL HISTORY:47 years Female, neutropenic fever Comparison: January 18, 2018 FINDINGS: Right chest port again noted. No focal lung consolidation. No pleural effusion. No pneumothorax. Cardiac and mediastinal silhouette is unremarkable. No acute osseous abnormality. Soft tissues are unremarkable. IMPRESSION: No acute findings. No focal lung consolidation. Electronically signed by: Siva Max MD 01/19/2018 7:14 AM CDT
[2018-01-19] MEDS ORDERED: MAGNESIUM SULFATE PREMIX 2GM 2 GM in PREMIX BAG 1 BAG IVPB ONE (10:09)
--- NOTE | 2018-01-19 10:15 | CT ---
EXAM DESCRIPTION: Head CLINICAL HISTORY: left sided headache, history of breast cancer COMPARISON: None TECHNIQUE: Noncontrast transaxial CT images of the head are obtained from base to vertex. This exam was performed according to our departmental dose-optimization program, which includes automated exposure control, adjustment of the mA and/or kV according to patient size and/or use of iterative reconstruction technique. FINDINGS: The midline structures are not displaced. The sulci are age appropriate. The lateral, third, and fourth ventricles are normal in size, shape, and anatomic positioning. There is no evidence of mass, mass effect, hydrocephalus, or acute intracranial hemorrhage. No abnormal extra axial fluid collections are seen. Normal parker-white differentiation is seen. The visualized bone windows show no depressed skull fracture or significant abnormality. The visualized paranasal sinuses and mastoid air cells are clear. IMPRESSION: 1. No acute abnormality is seen on noncontrast CT of the head. Electronically signed by: Jamal Mendez MD 01/19/2018 10:14 AM CDT
[2018-01-19] MEDS ORDERED: diphenhydrAMINE HCL 25 MG CAP PO PRN (10:20)
[2018-01-19] MEDS ORDERED: MAGNESIUM SULFATE PREMIX 2GM 50 ML IVPB ONE (10:30)
[2018-01-19] MEDS: BIFIDOBACTERIUM INFANTIS 4 MG CAP PO SCH (10:31)
--- NOTE | 2018-01-19 11:39 | PN ---
SUPERVISING PHYSICIAN: Jose Dowling MD DATE: 01/19/18 SUBJECTIVE: The patient states she does feel better than she did yesterday. She has not had any nausea or vomiting. She was anxious and received some Xanax and says that helped tremendously. The nurses state she has not had any fever overnight. It looks as though she was 99.9 on her vital signs at 10 o' clock last night. OBJECTIVE: VITAL SIGNS: Blood pressure 98/64. Heart rate 112. Respiratory rate 18. Temperature 98.5. Oxygen saturation 97%. GENERAL: Ms. Carlson is a 47-year-old female in no active distress. NEUROLOGIC: Alert and oriented. LUNGS: Clear to auscultation bilaterally. CARDIOVASCULAR: Regular rate and rhythm. Normal S1, S2, but she is tachycardic. ABDOMEN: Soft. Positive bowel sounds. GENITOURINARY: Deferred. EXTREMITIES: Lower extremities with no significant edema. Pulses 2+. Capillary refill is less than 2 seconds. LABORATORY: White count 2.0, hemoglobin 9.0, hematocrit 27.3, platelet count 90 , neutrophil percent is 24.0. Chemistry is unremarkable. Magnesium level 1.5. ASSESSMENT: 1. Neutropenic fever in a patient on active chemotherapy. 2. Leukopenia. 3. Anemia. 4. Electrolyte imbalance. 5. Active headache with history of migraines. 6. History of chronic back pain. PLAN: I have spoken with Dr. Armenta once again regarding the patient's lab work. He states to continue current therapy and reevaluate her CBC tomorrow. We will continue the Fortaz as well and see how she does. He wants to get her absolute neutrophil count greater than 1,000 along with being afebrile for 24 hours. We will replace her magnesium as her magnesium level is 1.5. I am going to change her IV fluids to include 20 mEq of potassium rather than the 40 mEq so we do not run into hyperkalemia. Additionally, she states her headache is different than normal. She has had problems with migraines her whole life, but this is on the left side of her head. I am going to check a CT scan of the brain to ensure we do not have any new developments. #[id number] [facility]
[2018-01-19] MEDS: KCL 20MEQ/D5 1/2NS 1,000 ML IVS PRN (12:28)
[2018-01-19] MEDS ORDERED: SUMAtriptan SUCCINATE 50 MG TAB PO PRN (14:30)
[2018-01-19] MEDS: ENOXAPARIN SODIUM 40 MG/0.4 ML SYG SUBCU SCH (21:21)
[2018-01-20] MEDS: KCL 20MEQ/D5 1/2NS 1,000 ML IVS PRN (02:10)
[2018-01-20] MEDS ORDERED: cefTAZidime 1 GM VIAL ONE (05:05)
[2018-01-20] MEDS ORDERED: SODIUM CHLORIDE 0.9% 100ML 100 ML IVPB ONE (05:05)
[2018-01-20] MEDS: cefTAZidime 2 GM in SODIUM CHLORIDE 0.9% 100ML 100 ML IVPB SCH (05:14)
[2018-01-20] MEDS: ALPRAZolam 0.5 MG TAB PO PRN (05:31)
[2018-01-20] MEDS ORDERED: HEPARIN SODIUM 100 U/ML 5 ML SYG IV ONE ×2 (09:23→09:26)
[2018-01-20] MEDS: BIFIDOBACTERIUM INFANTIS 4 MG CAP PO SCH (09:33)
[2018-01-20 09:40] VITALS: BP 129/78; TEMP 98.4
--- NOTE | 2018-01-20 10:31 | DS ---
SUPERVISING PHYSICIAN: Jose Dowling MD ADMISSION DIAGNOSIS: 1. Neutropenic fever. 2. Leukopenia. 3. Anemia. 4. Electrolyte imbalance. 5. History of migraines. 6. History of chronic back pain. DISCHARGE DIAGNOSIS: 1. Neutropenic fever. 2. Leukopenia. 3. Anemia. 4. Electrolyte imbalance. 5. History of migraines. 6. History of chronic back pain. HOSPITAL COURSE: Ms. Carlson is a 47-year-old female patient with a history of stage 2 breast cancer. On 11/25/17, the patient had a left modified radical mastectomy as well as a right simple mastectomy. She had been diagnosed with low-lying tumors close to the skin and had proceeded with non- injected chemotherapy, 3 courses, but had no clinical response. Her oncologist is Dr. Armenta from [place]. She was seen in followup 01/18/2018 in his office and lab work was completed showing she had a white count of only 1,000 and absolute neutrophil count less than 500 as well as she was running a fever of 101.5. Dr. Armenta requested the patient be admitted to the hospital in [place], however, the patient came to [place] as she was wishing to be admitted at [facility]. I spoke with Dr. Armenta and he noted that she had just finished a round of chemotherapy ten days previously. In the office, she was given 1 gram of Rocephin. Given that she has severe neutropenia with a fever, Dr. Armenta requested the patient be admitted for initiation of prophylactic antibiotics and for close monitoring for at least three days or until her white count improves and her absolute neutrophil count gets at least above 1500. Throughout the admission, her labs showed stepwise improvement. I continued to speak with Dr. Armenta regarding her lab work. This morning, her WBCs are 4.0 with neutrophils percentage of 52.5. This puts her absolute neutrophil count at greater than 2,000. She has been greater than 24 hours afebrile as well. She is in no distress. Dr. Armenta did not want her to go home on any antibiotics, therefore, she will be discharged today in stable condition. No change in her diet. No additional medications. She has a followup appointment with Dr. Armenta on Wednesday already and also I recommended she followup with her primary care physician in 2 weeks. #[id number] [facility]
[2018-01-20 10:34] VITALS: O2SAT 95
== END 2018-01-20 10:15 | disposition home or self-care (01) | DRG 810 ==
LOC: ER 16:17 → UNDOADMIN 17:25 → MS 17:25
PROVIDERS: ADMIT Nurse Practitioner Family; ATTEND Nurse Practitioner
DX: D70.1 Agranulocytosis secondary to cancer chemotherapy (principal); T45.1X5A Adverse effect of antineoplastic and immunosuppressive drugs, initial encounter; C50.919 Malignant neoplasm of unspecified site of unspecified female breast; R50.81 Fever presenting with conditions classified elsewhere; D63.0 Anemia in neoplastic disease; G43.909 Migraine, unspecified, not intractable, without status migrainosus; G89.29 Other chronic pain; M54.9 Dorsalgia, unspecified; F41.9 Anxiety disorder, unspecified; E83.42 Hypomagnesemia; Z88.1 Allergy status to other antibiotic agents; E87.6 Hypokalemia

== ENCOUNTER → 2018-04-28 | Outpatient (CLI) | payer BC ==
--- NOTE | 2018-04-28 10:20 | RAD ---
EXAM DESCRIPTION: Chest,3 Views: CR/DR CLINICAL HISTORY: 47 years Female, ABNORMAL LUNG FINDINGS breast cancer. COMPARISON: 2 view chest x-ray 01/20/2008. Thoracic spine radiographs 04/25/2018. TECHNIQUE/FINDINGS: 4 views: PA, PA shallow obliques, and lateral radiographs. Approximately 1 cm nodule, 2 cm superior to the right hemidiaphragm on the straight PA image, and the left PA oblique image. This nodule may be superimposed over the heart shadow on the right PA oblique image. This would indicate a posterior lung or chest wall location. Questionable nodule posterior lung on the lateral image overlying the spine. No acute infiltrate bilaterally. No pleural effusion or pneumothorax. Cardiopulmonary vascular structures and mediastinal silhouette are unremarkable. Stable position of VAD. IMPRESSION: Possible nodule posterior right lung base or posterior chest wall. Consider chest CT scan with IV contrast. Electronically signed by: Kenji Stewart MD 04/28/2018 10:19 AM [facility]
== END ==
LOC: RAD 08:05
PROVIDERS: ATTEND Family Medicine
DX: R91.8 Other nonspecific abnormal finding of lung field (principal)

== ENCOUNTER → 2018-04-29 | Outpatient (CLI) | payer BC ==
--- NOTE | 2018-04-29 13:57 | CT ---
EXAM DESCRIPTION: Chest w/Contrast : Computed Tomography. CLINICAL HISTORY: 47 years Female SOLITARY PULMONARY NODULE. Left breast cancer discovered in August 2017. Bilateral mastectomy. Right lung base nodule initially seen on thoracic spine radiographs 04/25/2018. Confirmed on chest x-ray with oblique images 04/28/2018. COMPARISON: Thoracic spine radiographs 04/25/2018. Chest x-ray with oblique images 04/28/2018. Chest CT scan without contrast 08/25/2017. TECHNIQUE: Spiral-axial scans at 5 x 5 mm intervals through the lungs and thorax with IV contrast. 2.5 x 5 mm lung algorithm axial reconstructions. Coronal and sagittal 2.0 Mm reconstructions. No adverse reactions. Total Exam DLP: 244.6 mGy-cm. This exam was performed according to our departmental dose-optimization program which includes automated exposure control, adjustment of the mA and/or kV according to patient size and/or use of iterative reconstruction technique; to reduce radiation dose to as low as reasonably achievable (ALARA). Nodule measurements under 10 mm are given as mean value of 3 axes diameters. FINDINGS: Lungs and large airways: Solid nodule with possible peripheral enhancement and circumscribed and minimally lobulated margins, 5 mm diameter lung axial series 4, image 38. At approximately the same level, there may be a 2 mm solid nodule more laterally. 2 mm nodule more lobulated margins slightly higher on image 35 not seen on the prior study. 2 mm nodule with lobular margins or superior and anterior left upper lobe on image 23 not seen on the prior study. 5 mm nodule with lobular margins and peripheral enhancement at the junction of the anterior segment in the lingula on axial image 59. 10 mm dense nodule anterior aspect superior segment left upper lobe on axial image 83 with Hounsfield density +[id number]. Consistent with a granuloma. Remainder of the left lower lobe is unremarkable. In the right lower lobe, a mass with lobulated margins is in the subpleural region on axial image 83 and measures 9 mm, not seen on the prior study. Semisolid subpleural nodule on the lung axial sequence lateral subpleural location measures 3 mm on image 38. Not seen on the prior study. No infiltrates bilaterally. Pleural spaces: No effusion bilaterally or pneumothorax. Mediastinum and Cherise: no enlarged lymph nodes or soft tissue masses. Great vessels and Heart: Unremarkable. Soft tissues of neck base, axillae, and chest wall: Patient has undergone bilateral mastectomy since the prior study. Injection port for VAD in the upper anterior right chest wall with tip of the catheter just above the superior cavoatrial junction. No chest wall soft tissue masses or abnormal contrast enhancement, or adenopathy. Upper abdomen: Gallbladder, adrenal glands, spleen, visualized. No free fluid or free air in the included peritoneal. Also the liver is visualized with no focal lesions. Osseous structures: Minimal spondylosis in one of the lower thoracic disc spaces. No blastic or lytic lesions in the spine, ribs, or sternum. IMPRESSION: 1. Multiple new solid bilateral pulmonary nodules in a patient with breast cancer, not seen on prior chest CT scan without contrast. Suspicious for metastatic disease. Largest nodule with mean diameter 9 mm in the right lower lobe may be amenable to percutaneous needle core biopsy. No lung infiltrates, effusion. No soft tissue masses or adenopathy in the mediastinum, hilum, or chest wall. CRITICAL COMMUNICATION: The critical value was discussed directly in person with Dr. Lucio Zamora at approximately 1120 hours, on April 29, 2018. Electronically signed by: Kenji Stewart MD 04/29/2018 1:55 PM PHYSICS INSTRUCTOR
== END ==
LOC: CT 09:54
PROVIDERS: ATTEND Family Medicine
DX: R91.8 Other nonspecific abnormal finding of lung field (principal); R91.1 Solitary pulmonary nodule; C50.819 Malignant neoplasm of overlapping sites of unspecified female breast; D70.9 Neutropenia, unspecified

== ENCOUNTER → 2018-08-23 | Outpatient (CLI) | payer BC ==
--- NOTE | 2018-08-23 14:06 | CT ---
EXAM DESCRIPTION: Chest w/Contrast (accession [id number]), Abdomen/Pelvis w/Contrast (accession [id number]): Computed Tomography. CLINICAL HISTORY: 48 years Female MALIGNANT NEOPLASM OF OVERLAPPING SITES OF LEFT FEMALE BREAST COMPARISON: Chest CT scan with IV contrast 04/29/2018. CT scan of the abdomen and pelvis with and without contrast 08/25/2017. TECHNIQUE: Spiral-axial scans at 5 x 5 mm intervals through the abdomen and pelvis, after nonionic IV contrast without oral contrast. Coronal and sagittal 2.0 mm reconstructions. Delayed scans, liver through the pelvis. Axial-spiral 5mm. No adverse reactions. Total Exam DLP: 1018.77 mGy-cm. Spiral-axial scans at 5 x 5 mm intervals through the lungs and thorax without IV contrast. 2.5 mm lung algorithm axial reconstructions. Coronal and sagittal 2.0 Mm reconstructions. No adverse reactions. Total Exam DLP: 248.57 mGy-cm. Nodule measurements under 10 mm are given as mean value of 3 axes diameters. This exam was performed according to our departmental dose-optimization program which includes automated exposure control, adjustment of the mA and/or kV according to patient size and/or use of iterative reconstruction technique; to reduce radiation dose to as low as reasonably achievable (ALARA). FINDINGS Chest: Lungs and large airways: New nodule is lobulated in contour with central radiolucency and no surrounding pulmonary Reactive changes. CT axial series #8, image 20. Overall diameter approximately 6 mm. At least 5 other new or enlarging nodules with microcalcifications or spiculated margins are seen in the right upper lobe ranging in size from 11 mm to 5 mm. The largest of these, approximately 10 mm, has a central cavity and may be within the upper lingula. New 3 mm solid nodule with spiculated and lobulated appearance in the superior segment of the left lower lobe anteriorly on image 50. Previously seen small nodule subpleural lateral right upper lobe has significantly enlarged in size now 8 cm, on image 39. New subpleural nodule with microlobulated margins measuring 6 mm in the inferior anterior right upper lobe on image 47. Solid mass in the right lower lobe with partially spiculated and microlobulated margins, measures 1.6 x 1.4 cm, image 91, and has doubled in volume since the prior study. New 3 mm solid nodule in the anterior subpleural right middle lobe on image 66. Pleural spaces: Bilateral apical pleural thickening with no effusion or pneumothorax. Mediastinum and Cherise: No soft tissue masses are enlarged lymph nodes. Great vessels and Heart: Unremarkable. Soft tissues of neck base, axillae, and chest wall: VAD injection port upper medial right breast. Tip of catheter in proximal SVC. Postsurgical changes in left mastectomy. Enlarging 6 mm nodule abutting the left supraspinatus muscle and teres minor muscle and the subcutaneous adipose tissue on axial sequence 2, image 17. Collateral venous flow around the upper anterior right chest and right shoulder. Question of a soft tissue mass versus normal vascular structures medial to the right proximal humerus and anterior to the right AC joint with lateral venous flow. The neck base is not well seen. Osseous structures: Stable with no lytic or blastic lesions. FINDINGS Abdomen and Pelvis: Liver, Stomach, Spleen, Adrenal Glands: Stomach is distended by gas which extends into the proximal duodenum. No definite mass or obstruction. Solid organs are negative. Pancreas, Gallbladder, Ducts: Unremarkable. Kidneys and Ureters: Negative. Mesentery: Unremarkable. Aorta: Negative. Small Bowel: Minimal distention of the distal ileum by fluid. No significant air-fluid levels. Terminal Ileum/Cecum: Terminal ileum with minimal gas and negative appendix not seen. Normal density of the surrounding fat.. Colon: Mostly fecal material in the mid and distal colon and gas in the rectosigmoid but no complications. Pelvic Organs: Again noted is fatty density mass with calcification in the left ovary. No surrounding fluid or fatty inflammatory changes. Bilateral tubal ligation clips. Right ovary unremarkable. No fluid in the cul-de-sac. Spine and Bony Pelvis: Again noted is spondylosis L5-S1 and Schmorl's node inferior L4. Able subcortical sclerosis of the junction of the left iliac bone and acetabulum. Stable subcortical cystic changes in the right femoral neck. Abdominal Wall/Back Soft Tissues: Small inguinal lymph nodes. No definite masses. No hernias. IMPRESSION: 1. Approximately 11-12 new or enlarging nodules in the bilateral lungs, most are in the left upper lobe. Largest nodule is in the right lower lobe. This indicates progression of metastases. New/enlarging soft tissue nodule in the subcutaneous adipose tissue abutting the left scapula. No new pleural effusion or pneumothorax. No new soft tissue masses or adenopathy in the mediastinum, hilum, or axilla. 2. Right upper extremity contrast injection demonstrating venous collaterals in the right shoulder and upper chest wall. Questionable soft tissue mass anterior to the right AC joint versus normal vascularity. 3. No new mass, fatty inflammatory changes, or fluid collection in the abdomen or pelvis. Stable left ovarian fatty calcification which may represent a dermoid. Electronically signed by: Kenji Stewart MD 08/23/2018 2:03 PM CDT
== END ==
LOC: CT 07:44
PROVIDERS: ATTEND Internal Medicine Hematology & Oncology
DX: C50.812 Malignant neoplasm of overlapping sites of left female breast (principal); R91.8 Other nonspecific abnormal finding of lung field

== ENCOUNTER 2019-09-18 09:53 | Emergency (ER) | payer BC ==
[2019-09-18] MEDS ORDERED: PENICILLIN BENZATHINE 1.2 MU 1.2 MU/2 ML SYG IM ONE (10:23)
--- NOTE | 2019-09-18 11:06 | RAD ---
EXAM DESCRIPTION: Chest,1 View CLINICAL HISTORY: chemo, fever COMPARISON: CT of the chest dated August TECHNIQUE: 1 view chest FINDINGS: Exam reveals an increase in the number of pulmonary nodules seen in both lungs. Previously observed nodules have increased in size. An [id number] catheter seen in place on the right with position unchanged. No pleural fluid is seen. Largest nodule identified is seen in the right lung base and measures 4.56cm in greatest dimension. IMPRESSION: Enlarging pulmonary nodules are observed in both lungs. Electronically signed by: Javon Jama MD 09/18/2019 11:04 AM CDT
[2019-09-18] MEDS ORDERED: SODIUM CHLORIDE 0.9% 1000ML 1,000 ML IVS ONE (11:20)
[2019-09-18] MEDS ORDERED: levoFLOXacin 500 MG TAB PO ONE (12:29)
[2019-09-18] MEDS ORDERED: FLUCONAZOLE 100 MG TAB PO ONE (12:31)
--- NOTE | 2019-09-18 12:31 | ED.PDOC ---
History of Present Illness - General Chief Complaint: Respiratory Problem Stated Complaint: left rib pain, frequent falls, fever Time Seen by Provider: 09/18/19 09:55 Source: patient Exam Limitations: no limitations - History of Present Illness Initial Comments: The patient is a 49-year-old female presented emergency room secondary to fever essentially. The patient was seen for the fever 2 days ago with her primary care doctor and was diagnosed with strep throat. She was put on azithromycin secondary to GI intolerance of amoxicillin. She has continued to have low-grade fever. No real shortness of breath. She has left lateral chest wall pain since a fall a couple of weeks ago. The patient has metastatic cancer to the lungs. Multiple lung lesions. She is currently getting chemotherapy and had a round of it on . The patient's blood pressures are low but looking at her records, her blood pressures are always low and her heart rate is always high. The patient did not appear to be in any significant distress. She is pleasant and cooperative. Throat is still mildly red but otherwise I see no evidence of overt infection on this patient. She is obviously immunocompromise. Her primary care doctor did send off a coronavirus test on the patient but is not yet back. Timing/Duration: other - 3 days Severity: mild Improving Factors: nothing Worsening Factors: nothing Associated Symptoms: fever/chills Allergies/Adverse Reactions: Allergies Amoxicillin Adverse Reaction (Verified 01/18/18 18:38) Home Medications: Ambulatory Orders Prochlorperazine Tab [Compazine Tab] 10 mg PO Q8H PRN 11/23/17 Acetaminophen [Tylenol] 500 mg PO Q4H PRN 01/18/18 DiphenhydrAMINE HCL [Benadryl] 50 mg PO Q6H PRN 01/18/18 Ibuprofen [Motrin] 200 mg PO Q8H PRN 01/18/18 levoFLOXacin [Levaquin] 500 mg PO DAILY #5 tab 09/18/19 Review of Systems - Review of Systems Constitutional: States: fever, malaise EENTM: States: throat pain - Mild Respiratory: States: no symptoms reported Cardiology: States: no symptoms reported Gastrointestinal/Abdominal: States: no symptoms reported Genitourinary: States: no symptoms reported Musculoskeletal: States: no symptoms reported Skin: States: no symptoms reported Neurological: States: no symptoms reported Endocrine: States: no symptoms reported All other Systems: No Change from Baseline Past Medical History (General) - Patient Medical History Hx Seizures: No Hx Stroke: No Hx Asthma: No Hx of COPD: No Hx Congestive Heart Failure: No Hx Pacemaker: No Hx Hypertension: No Hx Diabetes: No Hx MRSA: No Surgical History: other - Vaccination History Hx Influenza Vaccination: No - Social History Hx Alcohol Use: No Hx Substance Use: No Hx Physical Abuse: No Hx Emotional Abuse: No Family Medical History - Family History Mother Family History: Unknown Physical Exam - Physical Exam General Appearance: Alert, Comfortable, No apparent distress Eye Exam: bilateral normal Ears, Nose, Throat: hearing grossly normal, pharyngeal erythema Neck: full range of motion, supple Respiratory: lungs clear, normal breath sounds, no respiratory distress, no accessory muscle use Cardiovascular/Chest: normal peripheral pulses, no edema, tachycardia - Sinus Peripheral Pulses: radial,right: 2+, radial,left: 2+ Gastrointestinal/Abdominal: non tender, soft Rectal Exam: deferred Extremity: normal range of motion, non-tender, normal inspection, no pedal edema, normal capillary refill Neurologic: pharmacy technologist II-XII nml as tested, alert, normal mood/affect, oriented x 3 Skin Exam: normal color Comments: Vital Signs - 24 hr 09/18/19 09/18/19 09/18/19 10:00 11:00 12:00 Temperature 98.8 F 98.8 F 98.8 F Pulse Rate [ 114 H 100 H 96 H apical] Respiratory 20 20 20 Rate Blood Pressure 90/61 79/57 81/50 [right brachial ] O2 Sat by Pulse 99 98 98 Oximetry Progress - Progress Progress: 09/18/19 12:38 The patient is a 49-year-old female with known cancer presenting secondary to fever for the last 3 days. She did test positive for strep at her primary care doctor's office and was placed on azithromycin. The patient persists with fevers. She is immunocompromise. The patient was given a dose of Bicillin LA here in case there was some resistance to the azithromycin. Blood cultures have been done. Laboratory work looks reassuring when compared to the laboratory work from the cancer center from 4 days ago. No other source of infection has been found however given the immunocompromised state of this patient I am going to add Levaquin on board for the next 5 days. She can continue the azithromycin. Rapid flu was negative here. Coronavirus was sent out from her primary care doctor's office and is still not back. She does of course need to isolate given her immunocompromise state. The patient does have hypotension and tachycardia, however according to records these are longstanding issues. No evidence of acute changes otherwise. ER warnings are given. nicki hernandez [phone] - Results/Orders Results/Orders: Chest x-ray shows multiple changes consistent with metastatic disease 09/18/19 12:10 BLOOD CULTURE Stat Laboratory Results - last 24 hr 09/18/19 09/18/19 09/18/19 11:30 11:30 11:30 WBC 4.3 L RBC 2.49 L Hgb 8.9 L Hct 25.5 L MCV 102.3 H MCH 35.5 H MCHC 34.7 RDW 13.4 Plt Count 148 MPV 6.6 L Absolute Neuts (auto) 3.20 Absolute Lymphs (auto) 1.00 Absolute Monos (auto) 0.00 L Absolute Eos (auto) 0.00 Absolute Basos (auto) 0.00 Neutrophils % 75.1 Lymphocytes % 23.8 Monocytes % 0.4 L Eosinophils % 0.5 L Basophils % 0.2 Sodium 132 L Potassium 3.8 Chloride 101 Carbon Dioxide 23 Anion Gap 11.8 L BUN 15 Creatinine 0.52 L BUN/Creatinine Ratio 28.8 H Random Glucose 96 Serum Osmolality 265.2 L Lactic Acid 0.8 Calcium 8.4 Magnesium 1.7 L Total Bilirubin 0.5 AST 19 ALT 14 Alkaline Phosphatase 38 L Creatine Kinase 28 CK-MB (CK-2) 0.7 CK-MB (CK-2) % Not Reportable Troponin I < 0.02 B-Natriuretic Peptide 9.5 Serum Total Protein 6.4 Albumin 3.1 L Globulin 3.3 Albumin/Globulin Ratio 0.9 L TSH 2.04 Serum HCG, Qual Urine Color Urine Appearance Urine pH Ur Specific [place] Urine Protein Urine Glucose (UA) Urine Ketones Urine Blood Urine Nitrite Urine Bilirubin Urine Urobilinogen Ur Leukocyte Esterase Urine RBC Urine WBC Ur Epithelial Cells Urine Bacteria 09/18/19 09/18/19 11:30 12:05 WBC RBC Hgb Hct MCV MCH MCHC RDW Plt Count MPV Absolute Neuts (auto) Absolute Lymphs (auto) Absolute Monos (auto) Absolute Eos (auto) Absolute Basos (auto) Neutrophils % Lymphocytes % Monocytes % Eosinophils % Basophils % Sodium Potassium Chloride Carbon Dioxide Anion Gap BUN Creatinine BUN/Creatinine Ratio Random Glucose Serum Osmolality Lactic Acid Calcium Magnesium Total Bilirubin AST ALT Alkaline Phosphatase Creatine Kinase CK-MB (CK-2) CK-MB (CK-2) % Troponin I B-Natriuretic Peptide Serum Total Protein Albumin Globulin Albumin/Globulin Ratio TSH Serum HCG, Qual Negative Urine Color Yellow Urine Appearance Clear Urine pH 6.5 Ur Specific [place] 1.010 Urine Protein Negative Urine Glucose (UA) Negative Urine Ketones Negative Urine Blood Trace-lysed H Urine Nitrite Negative Urine Bilirubin Negative Urine Urobilinogen 0.2 Ur Leukocyte Esterase Negative Urine RBC 0-1 Urine WBC 0-1 Ur Epithelial Cells 0-1 Urine Bacteria 0 Departure - Departure Clinical Impression: Immunocompromised state Fever Qualifiers: Fever type: due to other condition Qualified Code(s): R50.81 - Fever presenting with conditions classified elsewhere Disposition: Discharge to Home or Self Care Condition: Fair Departure Forms: ED Discharge - Pt. Copy, Patient Portal Self Enrollment Diet: regular diet Activity: increase activity as tolerated Referrals: Chava Villatoro MD [Primary Care Provider] - 1-2 Weeks Prescriptions: levoFLOXacin [Levaquin] 500 mg PO DAILY #5 tab Home Medications: Ambulatory Orders Prochlorperazine Tab [Compazine Tab] 10 mg PO Q8H PRN 11/23/17 Acetaminophen [Tylenol] 500 mg PO Q4H PRN 01/18/18 DiphenhydrAMINE HCL [Benadryl] 50 mg PO Q6H PRN 01/18/18 Ibuprofen [Motrin] 200 mg PO Q8H PRN 01/18/18 levoFLOXacin [Levaquin] 500 mg PO DAILY #5 tab 09/18/19 Additional Instructions: The patient is a 49-year-old female with known cancer presenting secondary to fever for the last 3 days. She did test positive for strep at her primary care doctor's office and was placed on azithromycin. The patient persists with fevers. She is immunocompromise. The patient was given a dose of Bicillin LA here in case there was some resistance to the azithromycin. Blood cultures have been done. Laboratory work looks reassuring when compared to the laboratory work from the cancer center from 4 days ago. No other source of infection has been found however given the immunocompromised state of this patient I am going to add Levaquin on board for the next 5 days. She can continue the azithromycin. Rapid flu was negative here. Coronavirus was sent out from her primary care doctor's office and is still not back. She does of course need to isolate given her immunocompromise state. The patient does have hypotension and tachycardia, however according to records these are longstanding issues. No evidence of acute changes otherwise. ER warnings are given.
[2019-09-18] MEDS ORDERED: HEPARIN SODIUM 100 U/ML 5 ML SYG IV ONE (13:05)
[2019-09-18 13:38] VITALS: BP 93/61; TEMP 97.7; O2SAT 99
== END 2019-09-18 13:15 | disposition home or self-care (01) ==
LOC: ER 09:53
DX: R50.81 Fever presenting with conditions classified elsewhere (principal); C34.90 Malignant neoplasm of unspecified part of unspecified bronchus or lung; Z79.899 Other long term (current) drug therapy
CPT/HCPCS: 36415; 71045; 80053; 81001; 82550; 82553; 83605; 83735; 83880; 84443; 84484; 84703; 85025; 87040; 87502; J0561; J1642; J7030

== ENCOUNTER 2020-03-29 16:14 | Emergency (ER) | payer BC ==
[2020-03-29] MEDS ORDERED: SODIUM CHLORIDE 0.9% 1000ML 1,000 ML IVS ONE ×2 (16:45→18:44)
--- NOTE | 2020-03-29 16:49 | ED.PDOC ---
History of Present Illness - General Chief Complaint: Drug or Alcohol Abuse Stated Complaint: Accidental overdose Time Seen by Provider: 03/29/20 16:43 Additional Information: Patient is a 49-year-old female who presents to the ED via EMS with her with a chief complaint of accidental overdose. Patient has metastatic breast cancer to the lungs and brain and she has had bilateral mastectomies. She is presently going through chemotherapy. Patient has been prescribed Ambien as needed and for the past few nights patient has had insomnia and needed to take Ambien. Patient indicates she could not sleep last night and took 2 of her 5 mg Ambien's (patient is only supposed to take 1 tablet daily). This morning she again took 2 tablets and this afternoon she took 2 tablets. found patient very groggy and weak and called EMS. Patient denies any thoughts of suicidal ideation and indicates that he has no concern for SI. Per , patient had 7 Ambien tablets unaccounted for from the bottle for of which were taken today and it is possible that patient may have taken additional Ambien either today or previous days without this being known to . Patient is very groggy and is unable to give a meaningful history herself. - History of Present Illness Allergies/Adverse Reactions: Allergies Amoxicillin Adverse Reaction (Verified 03/29/20 16:56) Home Medications: Ambulatory Orders Prochlorperazine Tab [Compazine Tab] 10 mg PO Q8H PRN 11/23/17 Dexamethasone 4 mg PO Q8H 03/29/20 Escitalopram [Lexapro] 10 mg PO DAILY 03/29/20 HYDROcodone 7.5MG/APAP 325MG [Carlos 7.5/325] 1 tab PO Q4HR PRN 03/29/20 Midodrine HCl 2.5 mg PO TID 03/29/20 Olanzapine 2.5 mg PO BID PRN 03/29/20 Zolpidem Tartrate [Ambien] 5 mg PO DAILY 03/29/20 Review of Systems - Review of Systems Unable to Obtain Due To: condition Past Medical History (General) - Patient Medical History Hx Seizures: No Hx Stroke: No Hx Asthma: No Hx of COPD: No Hx Congestive Heart Failure: No Hx Pacemaker: No Hx Hypertension: No Hx Diabetes: No Hx MRSA: No - Vaccination History Hx Influenza Vaccination: No - Social History Hx Alcohol Use: No Hx Substance Use: No Hx Physical Abuse: No Hx Emotional Abuse: No Family Medical History - Family History Mother Family History: Unknown Physical Exam - Physical Exam General Appearance: Well Developed, Other - Patient is generally weak. She is very sleepy, arousable to light tactile stimulus but falls back asleep. Ears, Nose, Throat: normal pharynx Neck: supple, normal inspection Respiratory: chest non-tender, lungs clear, normal breath sounds, no respiratory distress, no accessory muscle use Cardiovascular/Chest: normal peripheral pulses, regular rate, rhythm, no edema, no gallop, no JVD, no murmur Peripheral Pulses: radial,right: 2+, radial,left: 2+ Gastrointestinal/Abdominal: non tender, soft Extremity: normal range of motion, non-tender, normal inspection Neurologic: other - Oriented to person place not to time, moves all extremities, follows simple commands. Skin Exam: normal color, warm/dry Progress - Progress Progress: 03/29/20 16:58 Patient with accidental overdose of Ambien. Will obtain screening labs and place nasal trumpet and watch patient. W we have spoken with poison control who agrees with our care plan with observation for respiratory depression. I discussed with that patient will be in the ED for several hours while we observe. 03/29/20 17:00 EKG: Sinus tachycardia, rate 123, left axis deviation, normal QRS, normal ST segment, normal T waves, negative STEMI. 03/29/20 18:47 Patient's labs have resulted and her lactate is elevated at 2.5. This combined with patient's tachycardia suggest that patient's drowsiness/confusion may be from sepsis and not from Ambien. Will obtain UA and blood cultures, will rebolused patient with normal saline, and will begin empiric IV antibiotics. Will CT patient's brain. 03/29/20 20:[address] brain has resulted and read as interval change from 2018 concerning for cerebral metastases versus chemotherapy changes. However, these are known findings consistent with patient's history of metastatic breast cancer to the brain and chemotherapy and there is no indication for MR imaging today. 03/29/20 22:12 Patient reassessed and is completely awake alert and oriented now. Patient's serial acetaminophen levels are not rising. Patient's UA does show a mild UTI, will treat. Patient's hyponatremia treated with IV fluids in the ED. Patient is no longer tachycardic, her heart rate is now in the 80s/90s. I discussed with patient taking her Ambien only as directed and she understands that inadvertently taking too much may cause respiratory depression and . Vital signs stable, patient is NAD and looks clinically well and I believe is safe for discharge with outpatient follow-up. Follow-up instructions, discharge instructions and return to ED precautions discussed with patient. Patient voices understanding and willingness to comply with instructions. All laboratory and radiographic results have been discussed with the patient, and all questions answered. Patient and happy with plan. Departure - Departure Clinical Impression: Altered mental status Qualifiers: Altered mental status type: somnolence Qualified Code(s): R40.0 - Somnolence Accidental overdose Qualifiers: Encounter type: initial encounter Qualified Code(s): T50.901A - Poisoning by unspecified drugs, medicaments and biological substances, accidental (unintentional), initial encounter Time of Disposition: 22:15 Disposition: Discharge to Home or Self Care Condition: Fair Departure Forms: ED Discharge - Pt. Copy, Patient Portal Self Enrollment Instructions: DI for Drug Overdose in Adults, Accidental Overdose (DC) Referrals: Chava Villatoro MD [Primary Care Provider] - 1-5 Days Home Medications: Ambulatory Orders Prochlorperazine Tab [Compazine Tab] 10 mg PO Q8H PRN 11/23/17 Dexamethasone 4 mg PO Q8H 03/29/20 Escitalopram [Lexapro] 10 mg PO DAILY 03/29/20 HYDROcodone 7.5MG/APAP 325MG [Carlos 7.5/325] 1 tab PO Q4HR PRN 03/29/20 Midodrine HCl 2.5 mg PO TID 03/29/20 Olanzapine 2.5 mg PO BID PRN 03/29/20 Zolpidem Tartrate [Ambien] 5 mg PO DAILY 03/29/20
[2020-03-29 16:54] VITALS: TEMP 97.3
--- NOTE | 2020-03-29 17:24 | RAD ---
EXAM: XR Chest, 1 View CLINICAL HISTORY: AMS TECHNIQUE: Frontal view of the chest. COMPARISON: 09/18/2019 FINDINGS: Lungs: There are increased nodular sub-innumerable bilateral pulmonary nodules of varying size as. Existing nodules have increased in size measuring up to approximately 4.8 cm maximal diameter. Pleural space: No pneumothorax or pleural effusion. Heart: Normal cardiac size and configuration. Mediastinum: No abnormality noted. Bones/joints: No osseous destruction or sclerosis noted. Tubes, lines and devices: Right subclavian central venous port terminates at the cavoatrial junction. IMPRESSION: Increasing size and numbers of multiple bilateral metastatic pulmonary nodules compared to 09/18/2019. Electronically signed by: Oksana Sanchez MD 03/29/2020 5:22 PM [employer] ARCHITECT
[2020-03-29] MEDS ORDERED: VANCOMYCIN HCL INJ 1,000 MG, VANCOMYCIN HCL INJ 500 MG in SODIUM CHLORIDE 0.9% 250ML 25... IVPB ONE (18:45)
[2020-03-29] MEDS ORDERED: ONDANSETRON INJ 4 MG/2 ML VIAL IV ONE (18:45)
--- NOTE | 2020-03-29 19:58 | CT ---
EXAM: CT Head Without Intravenous Contrast CLINICAL HISTORY: AMS TECHNIQUE: Axial computed tomography images of the head/brain without intravenous contrast. Sagittal and coronal reformatted images were created and reviewed. This CT exam was performed using one or more of the following dose reduction techniques: automated exposure control, adjustment of the mA and/or kV according to patient size, and/or use of iterative reconstruction technique. COMPARISON: 01/19/2018 FINDINGS: Limitations: None. Brain: There is significant interval change. Specifically, there is now bilaterally symmetric periventricular white matter hypodensity most concerning for edema. There is mild right frontal encephalomalacia. No mass effect or midline shift. Midline shift: None. Ventricles: No abnormality noted. Bones/joints: No acute fracture or osseous destruction. Soft tissues: Visualized portions appear normal. Vasculature: No acute abnormality noted. Sinuses: No layering fluid in the visualized portions of the paranasal sinuses. Mastoid air cells: No mastoid effusion. Orbits: Visualized portions appear normal. IMPRESSION: There is new bilateral periventricular hypodensity in right frontal encephalomalacia compared to 01/19/2018. Diagnostic considerations include effects of chemotherapy and metastasis. Recommend MRI. 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
[2020-03-29 22:07] VITALS: O2SAT 98
[2020-03-29 22:41] VITALS: BP 166/82
== END 2020-03-29 22:41 | disposition home or self-care (01) ==
LOC: ER 16:14
DX: T42.6X1A Poisoning by other antiepileptic and sedative-hypnotic drugs, accidental (unintentional), initial encounter (principal); N39.0 Urinary tract infection, site not specified; R00.0 Tachycardia, unspecified; E87.1 Hypo-osmolality and hyponatremia; C50.919 Malignant neoplasm of unspecified site of unspecified female breast; C78.00 Secondary malignant neoplasm of unspecified lung; C79.31 Secondary malignant neoplasm of brain; G47.00 Insomnia, unspecified; Z79.899 Other long term (current) drug therapy; Z92.21 Personal history of antineoplastic chemotherapy
CPT/HCPCS: 36415; 70450; 71045; 80053; 80307; 80320; 80329; 81001; 83605; 85025; 87040; 87086; 87088; 87186; 87635; 93005; J2405; J3370; J7030; J7050